=== PATIENT | female | born 1960 | race Caucasian/White ===

== ENCOUNTER 2016-12-03 03:39 | Observation (INO) | payer MEDICAID ==
[~2016-12-03] VITALS: Ht 172.7 cm; Wt 60.2 kg
[2016-12-03] VITALS (8 sets, daily range): BP systolic 103–147; BP diastolic 65–84; PULSE 65–90; RESP 16–18; TEMP 97.8–98.7; O2SAT 95–100
[~2016-12-03 03:39] MED LIST: ALBU1AER INH; ASPI81TA82 PO; CYCL-36 PO; HYDR-3535 PO; HYDR200T42 PO; IMIT100T PO; PRED5TAB PO; PROM25TA5 PO; SYNT137T PO; TOPA100T8 PO; VENL75TA91 PO
[2016-12-03] MEDS ORDERED: SODIUM CHLORIDE 0.9% FLUSH 10 ML FLUSH IVF PRN (03:45)
[2016-12-03 03:59] LABS: AUTOMATED NEUTROPHIL # 2.9 TH/MM3 (1.8-7.7); BASOPHIL % 0.7 % (0.0-2.0); EOSINOPHIL # 0.1 TH/MM3 (0-0.4); EOSINOPHIL % 1.3 % (0.0-4.0); HEMATOCRIT 33.8 % (35.0-46.0); HEMO FLAGS DIFF FINAL; LYMPH % 35.9 % (9.0-44.0); MEAN CELL VOLUME 98.9 FL (80.0-100.0); MEAN CORPUSCULAR HEMOGLOBIN 33.3 PG (27.0-34.0); MEAN CORPUSCULAR HGB CONC 33.7 % (32.0-36.0); MONO % 8.7 % (0.0-8.0); NEUT % 53.4 % (16.0-70.0); PLATELET COUNT 217 TH/MM3 (150-450); RED BLOOD COUNT 3.42 MIL/MM3 (4.00-5.30); RED CELL DISTRIBUTION WIDTH 12.4 % (11.6-17.2); WHITE BLOOD COUNT 5.5 TH/MM3 (4.0-11.0)
[2016-12-03] MEDS ORDERED: TOPA100T11 PO (04:00)
[2016-12-03] MEDS ORDERED: VENTAER INH (04:00)
[2016-12-03] MEDS ORDERED: CYCL1TAB29 PO (04:00)
[2016-12-03] MEDS ORDERED: PLAQ200T PO (04:00)
[2016-12-03] MEDS ORDERED: ASPI81TA11 PO (04:00)
[2016-12-03] MEDS ORDERED: VENL75TA PO (04:00)
[2016-12-03] MEDS ORDERED: LEVO.15 PO (04:00)
[2016-12-03] MEDS ORDERED: HYDR-3535 PO (04:00)
[2016-12-03] MEDS ORDERED: PRED20 PO (04:00)
[2016-12-03] MEDS ORDERED: DULE100A INH (04:00)
[2016-12-03] MEDS ORDERED: IMIT100T PO (04:00)
--- NOTE | 2016-12-03 04:04 | PD ---
HPI Chief Complaint: right wrist/hand weakness Time Seen by Provider: 03:51 Travel History International Travel<30 days: No Contact w/Intl Traveler<30days: No Traveled to known affect area: No History of Present Illness HPI The patient is a 56-year-old right-hand dominant female who woke up tonight with weakness of her right hand. She was last known to have full strength at 1: 00 this morning. 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 She states she always has a headache. She does have systemic lupus erythematosus. She states she has had neck problems and has had a neck fusion. She does have neck pain. She denies any numbness in the right arm, just weakness of her right hand/forearm. She denies any nausea or vomiting. She is not on any anticoagulants/platelet inhibitors except aspirin. PFSH Past Medical History Hx Anticoagulant Therapy: Yes (81 MG ASA) Arthritis: Yes Asthma: No Autoimmune Disease: Yes (LUPUS) Anxiety: No Depression: No (DENIES.) Heart Rhythm Problems: Yes (MURMOR) Cancer: Yes (THYROID CA., 1988.) Cardiovascular Problems: Yes High Cholesterol: No Chemotherapy: No Chest Pain: Yes (TODAY) Congestive Heart Failure: No COPD: No Cerebrovascular Accident: No Diabetes: No Diminished Hearing: No Endocrine: Yes GERD: Yes Genitourinary: Yes (STENTS) Immune Disorder: No Kidney Stones: Yes (FREQUENT) Musculoskeletal: Yes Neurologic: Yes Psychiatric: Yes Reproductive: No Respiratory: Yes (LUNG SURGERY R/T MASS.) Migraines: Yes Radiation Therapy: Yes Seizures: No Sleep Apnea: No Thyroid Disease: Yes (THYROIDECTOMY R/T CA.) Past Surgical History Abdominal Surgery: Yes (COLON RESECTION) Cardiac Surgery: No Endocrine Surgery: Yes (THYROIDECTOMY) Eye Surgery: No Genitourinary Surgery: Yes (BLADDER SURGERY X 3.) Gynecologic Surgery: Yes (CONIZATION FOR CERVICAL CA./HYSTERECTOMY.) Hysterectomy: Yes Oral Surgery: No Thoracic Surgery: Yes (THORACOTOMY) Social History Alcohol Use: Yes (RARELY) Tobacco Use: Yes (COUPLE A DAY) Substance Use: No Allergies-Medications (Allergen,Severity, Reaction): Coded Allergies: erythromycin base (Unverified Allergy, Intermediate, HIVES AND CALVES TO SWELL, 11/25/16) ibuprofen (Unverified Allergy, Mild, PT STATES NOT ALLERGIC, 8/15/17) Reported Meds & Prescriptions Reported Meds & Active Scripts Active Reported Cipro (Ciprofloxacin HCl) 500 Mg Tab 500 Mg PO BID Imitrex (Sumatriptan Succinate) 100 Mg Tab 100 Mg PO BID PRN If a satisfactory response has not been obtained at 2 hours, a second dose may be administered Effexor (Venlafaxine HCl) 75 Mg Tab 75 Mg PO DAILY Topamax (Topiramate) 100 Mg Tab 100 Mg PO BID Synthroid (Levothyroxine Sodium) 150 Mcg Tab 150 Mcg PO DAILY Prednisone 20 Mg Tab 20 Mg PO DAILY Plaquenil (Hydroxychloroquine Sulfate) 200 Mg Tab 100 Mg PO BID Take with food Lortab (Hydrocodone-Acetaminophen) 10-325 Mg Tab 1 Tab PO QID PRN Flexeril (Cyclobenzaprine HCl) 10 Mg Tab 10 Mg PO HS Aspirin EC (Aspirin) 81 Mg Tabdr 81 Mg PO DAILY Dulera 120 Act Inh (Mometasone-Formoterol 120 Act Inh) 100-5 Mcg/Act Inh 2 Puff INH BID Ventolin Hfa 18 GM Inh (Albuterol Sulfate) 90 Mcg/Act Aer 2 Puff INH Q4H PRN Review of Systems Except as stated in HPI: all other systems reviewed are Neg Physical Exam Narrative GENERAL: The patient is alert, oriented 3 in no apparent distress. SKIN: Focused skin assessment warm/dry. HEAD: Atraumatic. Normocephalic. EYES: Pupils equal and round. No scleral icterus. No injection or drainage. ENT: No nasal bleeding or discharge. Mucous membranes pink and moist. NECK: Trachea midline. No JVD. There is diffuse tenderness over the lower aspect of the right cervical spine but no obvious deformity noted. CARDIOVASCULAR: Regular rate and rhythm. No murmur appreciated. RESPIRATORY: No accessory muscle use. Clear to auscultation. Breath sounds equal bilaterally. GASTROINTESTINAL: Abdomen soft, non-tender, nondistended. Hepatic and splenic margins not palpable. MUSCULOSKELETAL: No obvious deformities. No clubbing. No cyanosis. No edema. NEUROLOGICAL: Awake and alert. No obvious cranial nerve deficits. 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 Normal speech. She has good capillary refill of the fingers, radial pulses are normal at the wrist. The right wrist and hand are weak but she has good upper arm strength pink and flex her elbow with normal strength. PSYCHIATRIC: Appropriate mood and affect; insight and judgment normal. Data Data Last Documented VS Vital Signs Date Time Temp Pulse Resp B/P (MAP) Pulse Ox O2 Delivery O2 Flow Rate FiO2 12/03/16 04:35 82 16 139/84 (102) 100 Room Air 12/03/16 03:45 98.0 Orders Orders Electrocardiogram (12/03/16 03:43) Prothrombin Time / Inr (Pt) (12/03/16 03:43) Act Partial Throm Time (Ptt) (12/03/16 03:43) Complete Blood Count With Diff (12/03/16 03:43) Comprehensive Metabolic Panel (12/03/16 03:43) Creatine Kinase (Cpk) (12/03/16 03:43) Troponin I (12/03/16 03:43) Urinalysis - C+S If Indicated (12/03/16 03:43) Ct Brain W/O Iv Contrast(Rout) (12/03/16 03:43) Ecg Monitoring (12/03/16 03:43) Iv Access Insert/Monitor (12/03/16 03:43) Oximetry (12/03/16 03:43) Sodium Chloride 0.9% Flush (Ns Flush) (12/03/16 03:45) Ct Cerv Spine W/O Contrast (12/03/16 03:43) Sumatriptan Inj (Imitrex Inj) (12/03/16 05:30) Mri Brain W/O Contrast (12/03/16 05:19) Labs Laboratory Tests Test 12/03/16 03:50 12/03/16 04:30 White Blood Count 5.5 TH/MM3 Red Blood Count 3.42 MIL/MM3 Hemoglobin 11.4 GM/DL Hematocrit 33.8 % Mean Corpuscular Volume 98.9 FL Mean Corpuscular Hemoglobin 33.3 PG Mean Corpuscular Hemoglobin Concent 33.7 % Red Cell Distribution Width 12.4 % Platelet Count 217 TH/MM3 Mean Platelet Volume 8.2 FL Neutrophils (%) (Auto) 53.4 % Lymphocytes (%) (Auto) 35.9 % Monocytes (%) (Auto) 8.7 % Eosinophils (%) (Auto) 1.3 % Basophils (%) (Auto) 0.7 % Neutrophils # (Auto) 2.9 TH/MM3 Lymphocytes # (Auto) 2.0 TH/MM3 Monocytes # (Auto) 0.5 TH/MM3 Eosinophils # (Auto) 0.1 TH/MM3 Basophils # (Auto) 0.0 TH/MM3 CBC Comment DIFF FINAL Differential Comment Prothrombin Time 10.5 SEC Prothromb Time International Ratio 1.0 RATIO Activated Partial Thromboplast Time 26.0 SEC MDM Medical Decision Making Medical Screen Exam Complete: Yes Emergency Medical Condition: Yes Medical Record Reviewed: Yes Interpretation(s) The EKG shows sinus rhythm with a rate of [address] elevation or depression. Differential Diagnosis Ischemic CVA, brain tumor, intracranial bleed, peripheral nerve compression- unlikely Narrative Course The risks and benefits of IV TPA for thrombolysis were explained to the patient and her . She feels that this is not a major deficit and she does not want TPA. She made the decision on her own and is a firm decision. She understood completely the risks and the benefits. I discussed this with her and her and I discussed this with Dr. Khan. She has made her decision. The patient will be admitted to [facility], neurology consulted and we will be doing an MRI. Physician Communication Physician Communication I discussed the patient with Drs. Khan and MARCO ANTONIO Perales. Mr. Perales instructed me to admit the patient to Dr. Nair. Diagnosis Primary Impression: CVA (cerebral vascular accident) Admitting Information Admitting Physician Requests: Wali Olsen MD Dec 03, 2016 04:04
[2016-12-03 04:13] LABS: PROTHROMBIN TIME - PATIENT 10.5 SEC (9.8-11.6)
[2016-12-03] MEDS ORDERED: CIPR-9 PO (04:27)
--- NOTE | 2016-12-03 04:44 | RADRPT ---
EXAM DATE/TIME: 12/03/2016 04:14 [facility] COMPARISON: No previous studies available for comparison. INDICATIONS : Right hand numbness. Evaluate for cerebrovascular accident. RADIATION DOSE: 56.58 CTDIvol (mGy) MEDICAL HISTORY : None SURGICAL HISTORY : Thyroidectomy. ENCOUNTER: Initial ACUITY: 1 day PAIN SCALE: 2/10 LOCATION: cranial TECHNIQUE: Multiple contiguous axial images were obtained of the head. Using automated exposure control and adj ustment of the mA and/or kV according to patient size, radiation dose was kept as low as reasonably a chievable to obtain optimal diagnostic quality images. DICOM format image data is available electro nically for review and comparison. FINDINGS: CEREBRUM: The ventricles are normal for age. No evidence of midline shift, mass lesion, hemorrhage or acute in farction. No extra-axial fluid collections are seen. POSTERIOR FOSSA: The cerebellum and brainstem are intact. The 4th ventricle is midline. The cerebellopontine angle i s unremarkable. EXTRACRANIAL: The visualized portion of the orbits is intact. SKULL: The calvaria is intact. No evidence of skull fracture. CONCLUSION: 1. No acute intracranial abnormalities on CT examination. Amado Salcedo MD on December 03, 2016 at 4:40 Board Certified Radiologist. This report was verified electronically.
--- NOTE | 2016-12-03 04:49 | RADRPT ---
EXAM DATE/TIME: 12/03/2016 04:14 [facility] COMPARISON: No previous studies available for comparison. INDICATIONS : Right hand numbness. RADIATION DOSE: 24.16 CTDIvol (mGy) MEDICAL HISTORY : None SURGICAL HISTORY : Thyroidectomy. ENCOUNTER: Initial ACUITY: 1 day PAIN SCALE: 2/10 LOCATION: neck TECHNIQUE: Volumetric scanning of the cervical spine was performed. Multiplanar reconstructions in the sagittal, coronal and oblique axial planes were performed. Using automated exposure control and adjustment o f the mA and/or kV according to patient size, radiation dose was kept as low as reasonably achievable to obtain optimal diagnostic quality images. DICOM format image data is available electronically f or review and comparison. FINDINGS: No acute fracture. Minimal degenerative anterolisthesis of C3 on C4. Previous fusion of C6-7. Slight reversal of normal cervical lordosis. No significant central canal stenosis. CONCLUSION: 1. No acute fracture. Minimal degenerative anterolisthesis of C3 on C4. Fusion at C6-7. Amado Salcedo MD on December 03, 2016 at 4:42 Board Certified Radiologist. This report was verified electronically.
[2016-12-03 05:19] LABS: BLOOD, URINE TRACE (NEG); GLUCOSE,URINE NEG (NEG); KETONE, URINE NEG (NEG); NITRITE,URINE NEG (NEG); PH, URINE 5.5 (5.0-8.5)
[2016-12-03 05:20] LABS: ALKALINE PHOSPHATASE 76 U/L (45-117); ALT (GPT) 17 U/L (10-53); ANION GAP 9 MEQ/L (5-15); AST (GOT) 17 U/L (15-37); BICARBONATE 17.3 MEQ/L (21.0-32.0); BLOOD UREA NITROGEN 16 MG/DL (7-18); CHLORIDE 111 MEQ/L (98-107); CREATINE KINASE 206 U/L (26-192); GLOMERULAR FILTRATION RATE 46 ML/MIN (>89); SODIUM (NA) 137 MEQ/L (136-145); TOTAL BILIRUBIN ADULT 0.3 MG/DL (0.2-1.0)
[2016-12-03 05:21] LABS: POTASSIUM 2.8 MEQ/L (3.5-5.1)
[2016-12-03] MEDS ORDERED: POTASSIUM CHLORIDE 10 MEQ CONTROLLED RELEASE TAB PO ONE ×2 (05:30→08:45)
[2016-12-03] MEDS ORDERED: NALOXONE HCL 0.4 MG/ML AMP IV PRN (05:30)
[2016-12-03] MEDS ORDERED: ACETAMINOPHEN 325 MG TAB PO PRN (05:30)
[2016-12-03] MEDS ORDERED: ONDANSETRON HCL 4 MG/2 ML VIAL IVP PRN (05:30)
[2016-12-03] MEDS ORDERED: SODIUM CHLORIDE 0.9% FLUSH 10 ML FLUSH IV FLUSH PRN (05:30)
[2016-12-03] MEDS ORDERED: SUMAtriptan INJ 6 MG/0.5 ML VIAL SQ ONE (05:30)
[2016-12-03] MEDS ORDERED: POTASSIUM CHLORIDE 20 MEQ CONTROLLED RELEASE TAB PO ONE (05:30)
[2016-12-03 05:31] LABS: URINE COLOR YELLOW (YELLW/STRAW)
[2016-12-03 05:32] LABS: COMMENT (UR) CULT NOT INDICATED; CULTURE IF INDICATED CULT NOT INDICATED; RBC, URINE 0-3 /hpf (0-3); SQUAMOUS EPITHELIAL CELL URINE 0-5 /hpf (0-5)
[2016-12-03] MEDS ORDERED: ASPIRIN 325 MG TAB PO ONE (06:00)
[2016-12-03 06:04] LABS: CKMB 8.2 NG/ML (0.5-3.6)
[2016-12-03] MEDS: SODIUM CHLOR 0.9% 1000 ML INJ 1,000 ML IV SCH ×3 (06:23→20:45)
[2016-12-03] MEDS: ENOXAPARIN SODIUM 40 MG/0.4 ML SYRINGE SQ SCH (06:23)
[2016-12-03] MEDS: SODIUM CHLORIDE 0.9% FLUSH 10 ML FLUSH IV FLUSH SCH ×2 (09:00→20:44)
--- NOTE | 2016-12-03 09:26 | RADRPT ---
EXAM DATE/TIME: 12/03/2016 07:36 [facility] COMPARISON: No previous studies available for comparison. INDICATIONS : Cerebrovascular accident. MEDICAL HISTORY : Thyroid cancer. SURGICAL HISTORY : Thyroidectomy. Hysterectomy. Colon resection. Lung surgery. Bladder surgery. Back surgery. ENCOUNTER: Initial ACUITY: 1 day PAIN SCORE: 0/10 LOCATION: Bilateral neck PEAK SYSTOLIC VELOCITIES (cm/sec): ICA/CCA RATIO: Right: 1.5 Left: 1.0 ICA: Right: 111 Left: 97 CCA: Right: 76 Left: 95 ECA: Right: 58 Left: 86 VERTEBRAL: Right: 57 antegrade Left: 51 antegrade Elevated flow velocities and ICA/CCA ratios have been found to correlate with increased degrees of vessel stenosis, calculated as percentage of diameter relative to a normal segment of distal ICA/CCA FINDINGS: RIGHT CAROTID: No significant stenosis is visualized. The waveforms are within normal limits. LEFT CAROTID: No significant stenosis is visualized. The waveforms are within normal limits. VERTEBRAL ARTERIES: Antegrade flow is seen in both vertebral arteries. MISCELLANEOUS: None. CONCLUSION: 1. No stenosis involving either carotid artery. 2. Antegrade flow involving both vertebral arteries. Simón Davies Jr., MD on December 03, 2016 at 9:18 Board Certified Radiologist. This report was verified electronically.
--- NOTE | 2016-12-03 10:27 | ECHRPT ---
Indication: Syncope and collapse CONCLUSIONS Normal left ventricular size and wall thickness. The left ventricular systolic function is normal wi th an estimated ejection fraction in the range of 60-65%. Left ventricular diastolic function parameters a re normal. Trace aortic valve regurgitation. Trace mitral valve regurgitation. There is trace tricuspid valve regurgitation. The estimated pulmonary arterial pressure is 28 mmHg. BP: / HR: 77 Rhythm: MEASUREMENTS (Male / Female) Normal Values Technical Quality: 2D ECHO LV Diastolic Diameter PLAX 4.1 cm 4.2 - 5.9 / 3.9 - 5.3 cm LV Systolic Diameter PLAX 3.0 cm IVS Diastolic Thickness 0.9 cm 0.6 - 1.0 / 0.6 - 0.9 cm LVPW Diastolic Thickness 0.9 cm 0.6 - 1.0 / 0.6 - 0.9 cm LV Relative Wall Thickness 0.4 RV Internal Dim ED PLAX 2.2 cm LVOT Diameter 2.1 cm M-MODE Aortic Root Diameter MM 3.3 cm LA Systolic Diameter MM 2.5 cm LA Ao Ratio MM 0.8 DOPPLER AV Peak Velocity 136.0 cm/s AV Peak Gradient 7.4 mmHg AI Peak Velocity 295.5 cm/s AI Peak Gradient 34.9 mmHg AI Pressure Half Time 873.5 ms LVOT Peak Velocity 116.0 cm/s LVOT Peak Gradient 5.4 mmHg AV Area Cont Eq pk 3.0 cm MR Peak Velocity 326.0 cm/s MR Peak Gradient 42.5 mmHg Mitral E Point Velocity 75.0 cm/s Mitral A Point Velocity 55.8 cm/s Mitral E to A Ratio 1.3 LV E' Lateral Velocity 15.4 cm/s Mitral E to LV E' Lateral Ratio 4.9 LV E' Septal Velocity 9.5 cm/s Mitral E to LV E' Septal Ratio 7.9 TR Peak Velocity 212.0 cm/s TR Peak Gradient 18.0 mmHg PV Peak Velocity 88.2 cm/s PV Peak Gradient 3.1 mmHg FINDINGS LEFT VENTRICLE Normal left ventricular size and wall thickness. The left ventricular systolic function is normal wi th an estimated ejection fraction in the range of 60-65%. Left ventricular diastolic function parameters a re normal. RIGHT VENTRICLE Normal right ventricular size and systolic function. LEFT ATRIUM The left atrial size is normal. RIGHT ATRIUM The right atrial size is normal. ATRIAL SEPTUM Normal atrial septal thickness without atrial level shunting by limited color doppler interrogation. AORTA The aortic root and proximal ascending aorta are normal in size on limited imaging. MITRAL VALVE Trace mitral valve regurgitation. AORTIC VALVE Trace aortic valve regurgitation. TRICUSPID VALVE There is trace tricuspid valve regurgitation. The estimated pulmonary arterial pressure is 28 mmHg. PULMONARY VALVE The pulmonary valve is not well visualized. VESSELS The inferior vena cava is normal in size. PERICARDIUM No pericardial effusion. Bert Byers MD (Electronically Signed) Final Date:03 December 2016 10:26
[2016-12-03] MEDS ORDERED: ACETAMINOPHEN/HYDROcodone 325 MG/10 MG TAB PO PRN (11:45)
[2016-12-03] MEDS ORDERED: ALBUTEROL SULFATE 90 MCG/ACT HFA 8 GM INHALER INH PRN (11:45)
[2016-12-03] MEDS: ASPIRIN 325 MG TAB PO SCH (12:00)
--- NOTE | 2016-12-03 12:13 | MH ---
cc: RANDALL BLACKBURN MD DATE OF ADMISSION: 12/03/2016 CHIEF COMPLAINT Right hand and wrist weakness. HISTORY OF PRESENT ILLNESS This is a 56-year female with past medical/surgical history significant for lupus, history of thyroid cancer in 1987, history of GERD, history of ureteral stent placed four times, history of kidney stone in the past, history of lung surgery for a right lung mass which was benign per patient, migraine headaches, history of thyroidectomy because of the cancer of the thyroid, history of colon resection because of intussusception, conization of the cervix with history of cervical cancer and hysterectomy, who came to the ER at [facility] complaining of right hand weakness. She stated it started at 1:30 a.m. today. She stated that she always has a headache. She has a history of systemic lupus erythematosus. She has neck problems with a history of a neck fusion in the past. She does have some neck pain which is about 4-5/10 and radiates to the right arm. Denies any nausea or vomiting. Denies any fever or chills. Denies any chest pain or shortness of breath. Denies any weakness anywhere else but has some numbness and tingling in the right upper extremity. Other than that nothing significant. PAST MEDICAL/SURGICAL HISTORY As dictated above. SOCIAL HISTORY She smoked for 20 years 2-3 cigarette a day. She drinks rarely. Lives at home with her . She denies any drug abuse. FAMILY HISTORY Significant for cancer. ALLERGIES 1. ERYTHROMYCIN. 2. IBUPROFEN. MEDICATIONS 1. Cipro 500 mg twice a day. 2. Imitrex 100 mg twice a day p.r.n. anxiety. 3. Effexor 75 mg p.o. daily. 4. Topamax 100 mg p.o. b.i.d. 5. Synthroid 150 mcg p.o. daily. 6. Hydroxychloroquine 100 mg twice a day. 7. Lortab 10/325 p.o. q.i.d. p.r.n. pain. 8. Flexeril 10 mg p.o. h.s. 9. Aspirin 81 mg p.o. daily. 10. Dulera 100/5 mcg, two puff inhalation twice a day. 11. Ventolin HFA 18 mcg, two puff inhalation q.4h. REVIEW OF SYSTEMS Positive for right upper extremity weakness and right arm weakness and numbness and tingling in the right upper extremity. All other review of systems are negative. PHYSICAL EXAMINATION GENERAL: This is a 56-year-old female sitting on the bed not in acute distress. VITAL SIGNS: Temperature 97.9, heart rate 67, respirations 18, blood pressure 111/74. O2 saturation 95% on room air. HEENT: Normocephalic, atraumatic. EOMI. PERRL. Oral mucosa moist. NECK: Supple. No visible thyromegaly or neck mass. Trachea is central. CV: Regular rate and rhythm. LUNGS: Respiration is clear to auscultation bilaterally. ABDOMEN: Soft, nontender. Bowel sounds audible. EXTREMITIES: Right upper extremity weakness, probably about 4/5. All other extremities have full range of motion. No cyanosis or clubbing. NEUROLOGIC: Awake, alert, oriented x4. Right upper extremity weakness, 4/5. ? sensory loss right upper extremity. Speech is normal. All cranial nerves are intact. SKIN: Warm and dry. PSYCHIATRIC: Patient is cooperative. Mood and affect are normal. LABORATORY CBC is remarkable for hemoglobin 11.4 low, hematocrit 33.8 low, platelet count 217 normal. CMP is remarkable for potassium 2.8 low, chloride 111 high, carbon dioxide 17.3 low, creatinine 1.20 high, BUN 16, glucose random 111 high, calcium 8.0 low, total creatinine kinase 206 high, CK-MB 8.2 low, troponin-I less than 0.02, total protein 7.5, albumin 4.1. PT 10.5, INR 1.0, APTT 26.0. Urine examination showed trace occult blood. IMAGING Carotid ultrasound done shows no stenosis involving either carotid artery. Antegrade flow involving both vertebral arteries. CT brain was done and shows no acute intracranial abnormality on CT examination. Cervical spine CT done shows no acute fracture. Minimal degenerative sclerosis of the C3-C4, fusion at C6-C7. MRI brain is pending. ASSESSMENT AND PLAN 1. This is a 56-year-old female who came to the ER diagnosed with right upper extremity weakness and numbness and tingling, rule out stroke. CT brain does not show anything acute. MRI is pending. Neuro-checks every six hours. Neurology consulted. The patient is on aspirin 325 mg p.o. daily. Further recommendation per neurology. 2. History of hypothyroidism. Continue home medication. 3. History of migraine headaches. Continue home medication. 4. History of lupus. Continue home medication. 5. History of arthritis. Continue home medication. 6. History of COPD. Continue home medication. 7. History of kidney stone, status post stent placement and removal in the past. 8. History of lung mass, status post mass removal, it was benign per patient. 9. History of thyroid cancer. The patient is status post total thyroidectomy. 10. History of colon resection because of intussusception. 11. History of cervical cancer status post total hysterectomy. 12. DVT prophylaxis with Lovenox 40 mg subcutaneous daily. 13. GI prophylaxis with Protonix 40 mg p.o. daily. 14. We are going to manage the patient on a daily basis and make recommendations on a daily basis. Randall Blackburn MD EA/DANIEL /11:36 AM /11:49 AM
[2016-12-03] MEDS ORDERED: PILL SPLITTER OTHER PRN (12:15)
[2016-12-03] MEDS ORDERED: FORMOTEROL PO SCH ×2 (12:15→21:00)
[2016-12-03] MEDS ORDERED: MOMETASONE PO SCH ×2 (12:15→21:00)
[2016-12-03] MEDS ORDERED: [UNRECOGNIZED DRUG - OTHER] PO SCH ×2 (12:15→21:00)
--- NOTE | 2016-12-03 12:20 | RADRPT ---
EXAM DATE/TIME: 12/03/2016 10:41 [facility] COMPARISON: No previous studies available for comparison. INDICATIONS : CVA. Tinglng right arm. MEDICAL HISTORY : Carcinoma, thyroid. SURGICAL HISTORY : Thyroidectomy. Colon resection. Fusion, cervical. ENCOUNTER: Initial ACUITY: 1 day PAIN SCORE: 0/10 LOCATION: head TECHNIQUE: Multiplanar, multisequence MRI of the brain was performed without contrast. FINDINGS: CEREBRUM: The ventricles are normal for age. No evidence of midline shift, mass lesion, hemorrhage or acute in farction. No extraaxial fluid collections are seen. The pituitary gland and suprasellar cistern are normal in configuration. WHITE MATTER: Minimal white matter changes, predominantly right cerebral hemisphere. POSTERIOR FOSSA: The cerebellum and brainstem are intact. The 4th ventricle is midline. The cerebellopontine angle is unremarkable. 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 DIFFUSION IMAGING: No focal areas of restricted diffusion are seen. No evidence of acute infarction. EXTRACRANIAL: The visualized portions of the orbits and paranasal sinuses are unremarkable. CONCLUSION: 1. 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 2. Minimal white matter changes. 3. Otherwise, nothing acute.. Onel Plaza MD on December 03, 2016 at 12:13 Board Certified Radiologist. This report was verified electronically.
[2016-12-03] MEDS: VENLAFAXINE HCL XR 75 MG CAP PO SCH (12:21)
[2016-12-03] MEDS: predniSONE 20 MG TAB PO SCH (12:21)
[2016-12-03] MEDS: TOPIRAMATE 100 MG TAB PO SCH ×2 (12:21→20:44)
[2016-12-03] MEDS: HYDROXYCHLOROQUINE SULFATE 200 MG TAB PO SCH ×2 (12:22→20:43)
[2016-12-03] MEDS: CIPROFLOXACIN 500 MG TAB PO SCH ×2 (12:22→20:43)
[2016-12-03] MEDS: LEVOTHYROXINE SODIUM 150 MCG TAB PO SCH (12:22)
[2016-12-03] MEDS: SUMAtriptan SUCCINATE 50 MG TAB PO PRN (15:44)
--- NOTE | 2016-12-03 19:38 | EKG ---
Date Performed: 12/03/2016 Time Performed: 04:02:59 PTAGE: 56 years EKG: Sinus rhythm NONSPECIFIC T-WAVE ABNORMALITY BORDERLINE ECG PREVIOUS TRACING : 06/26/2015 20.26 Compared to prior tracing no significant change DOCTOR: Dave Mireles Interpretating Date/Time 12/03/2016 19:36:47
[2016-12-03] MEDS ORDERED: CYCLOBENZAPRINE HCL 10 MG TAB PO SCH (21:00)
[2016-12-04] VITALS: BP 96/76; PULSE 65; RESP 16; TEMP 97.6; O2SAT 99
[2016-12-04] MEDS: SUMAtriptan SUCCINATE 50 MG TAB PO PRN (04:12)
[2016-12-04] MEDS: ENOXAPARIN SODIUM 40 MG/0.4 ML SYRINGE SQ SCH (05:30)
[2016-12-04] MEDS: LEVOTHYROXINE SODIUM 150 MCG TAB PO SCH (06:00)
[2016-12-04 06:39] LABS: AUTOMATED NEUTROPHIL # 1.9 TH/MM3 (1.8-7.7); BASOPHIL % 1.1 % (0.0-2.0); EOSINOPHIL % 1.2 % (0.0-4.0); HEMATOCRIT 33.1 % (35.0-46.0); HEMO FLAGS DIFF FINAL; LYMPH % 40.7 % (9.0-44.0); LYMPHOCYTE # 1.5 TH/MM3 (1.0-4.8); MEAN CELL VOLUME 98.4 FL (80.0-100.0); MEAN CORPUSCULAR HEMOGLOBIN 31.6 PG (27.0-34.0); MEAN CORPUSCULAR HGB CONC 32.1 % (32.0-36.0); MONO % 8.3 % (0.0-8.0); NEUT % 48.7 % (16.0-70.0); PLATELET COUNT 178 TH/MM3 (150-450); RED BLOOD COUNT 3.37 MIL/MM3 (4.00-5.30); RED CELL DISTRIBUTION WIDTH 12.3 % (11.6-17.2); WHITE BLOOD COUNT 3.7 TH/MM3 (4.0-11.0)
[2016-12-04 07:06] LABS: ALKALINE PHOSPHATASE 64 U/L (45-117); ALT (GPT) 15 U/L (10-53); ANION GAP 7 MEQ/L (5-15); AST (GOT) 23 U/L (15-37); BICARBONATE 17.8 MEQ/L (21.0-32.0); BLOOD UREA NITROGEN 9 MG/DL (7-18); CHLORIDE 121 MEQ/L (98-107); GLOMERULAR FILTRATION RATE 65 ML/MIN (>89); POTASSIUM 3.6 MEQ/L (3.5-5.1); SODIUM (NA) 146 MEQ/L (136-145); TOTAL BILIRUBIN ADULT 0.3 MG/DL (0.2-1.0)
[2016-12-04 08:00] VITALS: BP 104/71; PULSE 74; RESP 16; TEMP 97.9; O2SAT 99
[2016-12-04 08:22] VITALS: O2SAT 99
--- NOTE | 2016-12-04 08:28 | HHI.PR ---
Subjective History of Present Illness Patient have right hand and wrist weakness which is better neurology input noted d/w ELBA Hickman at bed side ok to discharge per neurology.. Neurology recommend outpatient EMG nerve conduction study . In the interim she can stay on full dose aspirin. recommend physical and occupational therapy. Outpatient Holter monitor as well. No evidence of a stroke on MRI. Review of Systems Constitutional Constitutional: Fatigue, Weakness Musculoskeletal MS Remarks right hand and wrist weakness Neurologic Neurologic Remarks right hand and wrist weakness Vitals/Results Vital Signs Vital Signs Date Time Temp Pulse Resp B/P (MAP) Pulse Ox O2 Delivery O2 Flow Rate FiO2 12/04/16 00:00 97.6 65 16 96/76 (83) 99 12/03/16 20:47 98 21 12/03/16 20:00 98.7 65 16 103/65 (78) 99 12/03/16 12:00 97.8 77 18 112/79 (90) 100 12/03/16 12:00 97.8 74 18 147/71 (96) 96 12/03/16 08:30 97.9 67 18 111/74 (86) 95 CBC/BMP: 12/04/16 0555 12/04/16 0555 Lab Results Laboratory Tests Test 12/04/16 05:55 White Blood Count 3.7 TH/MM3 Red Blood Count 3.37 MIL/MM3 Hemoglobin 10.6 GM/DL Hematocrit 33.1 % Mean Corpuscular Volume 98.4 FL Mean Corpuscular Hemoglobin 31.6 PG Mean Corpuscular Hemoglobin Concent 32.1 % Red Cell Distribution Width 12.3 % Platelet Count 178 TH/MM3 Mean Platelet Volume 9.0 FL Neutrophils (%) (Auto) 48.7 % Lymphocytes (%) (Auto) 40.7 % Monocytes (%) (Auto) 8.3 % Eosinophils (%) (Auto) 1.2 % Basophils (%) (Auto) 1.1 % Neutrophils # (Auto) 1.9 TH/MM3 Lymphocytes # (Auto) 1.5 TH/MM3 Monocytes # (Auto) 0.3 TH/MM3 Eosinophils # (Auto) 0.0 TH/MM3 Basophils # (Auto) 0.0 TH/MM3 CBC Comment DIFF FINAL Differential Comment Blood Urea Nitrogen 9 MG/DL Creatinine 0.89 MG/DL Random Glucose 90 MG/DL Total Protein 6.3 GM/DL Albumin 3.2 GM/DL Calcium Level 7.6 MG/DL Alkaline Phosphatase 64 U/L Aspartate Amino Transf (AST/SGOT) 23 U/L Alanine Aminotransferase (ALT/SGPT) 15 U/L Total Bilirubin 0.3 MG/DL Sodium Level 146 MEQ/L Potassium Level 3.6 MEQ/L Chloride Level 121 MEQ/L Carbon Dioxide Level 17.8 MEQ/L Anion Gap 7 MEQ/L Estimat Glomerular Filtration Rate 65 ML/MIN Physical Exam General General Appearance: No Acute Distress, Comfortable Eyes Eye Exam: Sclera White, Extraocular Movement Intact Throat Throat Exam: Oral Mucosa [place] & Moist, Oral Pharynx Normal Neck Neck Exam: Neck Supple, Trachea Midline Pulmonary Resp Exam: Clear Bilaterally, Breath Sounds Equal, No Distress Cardiology CV Exam: Regular, Normal Sinus Rhythm Gastrointestinal/Abdomen GI Exam: Soft, Non-Tender, Bowel Sounds Present Musculoskeletal MS Exam: Joints Intact MS Remarks right hand and wrist weakness Integumentary Skin Exam: Clear, Warm, Dry Extremeties Extremities Exam: No Edema Neurologic Neuro Exam: Alert, Awake, Oriented, Speech Clear Neuro Remarks right hand and wrist weakness Psychiatric Psych Exam: Appropriate Responses VTE Prophylaxis VTE Prophylaxis Meds: Heparin PUD Prophylasis PUD Prophylaxis: Protonix Assessment/Plan Assessment/Plan ASSESSMENT AND PLAN 1. This is a 56-year-old female who came to the ER diagnosed with right upper extremity weakness and numbness and tingling, rule out stroke. CT brain does not show anything acute. MRI is pending. Neuro-checks every six hours. Neurology input noted. need EMG and Nerve conduction study as out patient Need physical and occupational therapy and MRI Negative for stroke. The patient is on aspirin 325 mg p.o. daily. 2. History of hypothyroidism. Continue home medication. 3. History of migraine headaches. Continue home medication. 4. History of lupus. Continue home medication. 5. History of arthritis. Continue home medication. 6. History of COPD. Continue home medication. 7. History of kidney stone, status post stent placement and removal in the past. 8. History of lung mass, status post mass removal, it was benign per patient. 9. History of thyroid cancer. The patient is status post total thyroidectomy. 10. History of colon resection because of intussusception. 11. History of cervical cancer status post total hysterectomy. 12. DVT prophylaxis with Lovenox 40 mg subcutaneous daily. 13. GI prophylaxis with Protonix 40 mg p.o. daily. Ok to discharge home today. f/u with PCP/ Neurology 1 week. condition at discharge good, Activity as tolerated. Diet Cardiac Medicine see discharge medicine list. Discussed Condition with: Patient Randall Nair MD Dec 04, 2016 08:28
--- NOTE | 2016-12-04 08:29 | MB ---
cc: BLANCHE ARGUETA M.D. DATE OF CONSULTATION 12/03/2016 DATE OF 1960 AGE [age] years old. REASON FOR CONSULTATION Right hand weakness. Possible TIA. HISTORY OF PRESENT ILLNESS This is a 56-year-old woman with a history of thyroid cancer in 1987, reflux, ureteral stent, kidney stones, lung surgery for a right lung mass benign per the patient, migraine headaches, thyroidectomy, colon resection due to intussusception who comes in with right hand weakness. She stated it started at 01:30 in the morning. She woke up with it. She has a history also of lupus. She denies any significant neck issues but she has had a history of neck fusion in the past. She denies any interval changes in the face or in the leg on the same side. SOCIAL HISTORY History of smoking for 20 years, two to three cigarettes a day. Drinks rarely. Lives at home. Denies any drug abuse. FAMILY HISTORY Cancer. ALLERGIES ERYTHROMYCIN. IBUPROFEN. CURRENT MEDICATIONS 1. Cipro. 2. Imitrex. 3. Effexor. 4. Topamax. 5. Synthroid. 6. Hydroxychloroquine. 7. Lortab. 8. Flexeril. 9. Baby aspirin. 10. Dulera. 11. Ventolin. PHYSICAL EXAMINATION VITAL SIGNS: Temperature is 97.8, pulse 74, respiratory rate 18, blood pressure 147/71, sating at 96% on room air, 100% room air. NECK: Supple. No bruits. HEART: Regular. NEUROLOGICAL EXAMINATION She is awake, alert. She is fluent. Pupils reactive. Visual lopez full. Face symmetrical. Tongue midline. Motor: She seems to have a right wrist drop. She cannot extend the fingers. She states that sensory is abnormal, feels like pins and needles. DTRs are 2+. No Nevin's sign. Leg lag is not observed. She does not have a drift. [employer] is very weak. Imaging of the brain did not show any acute infarct, just some tonsillar ectopia with cerebellar tonsils at 5 mm below the foramen magnum, nothing acute. IMAGING STUDIES Her carotid ultrasound was negative. LABS Reviewed. She has a low potassium of 2.8 when she came in. IMPRESSION Right hand weakness. It looks like a radial nerve palsy most likely. She cannot tell me the position at which she slept, if she put any pressure in the axillary region. RECOMMENDATIONS 1. I would recommend outpatient EMG nerve conduction study. 2. I see that she is on topiramate; I am not sure why she is on that, if she has a history of kidney stones she should not be on that drug. 3. In the interim she can stay on full dose aspirin. 4. Would recommend physical and occupational therapy. 5. Outpatient Holter monitor as well. However, I do not see any evidence of a stroke on her imaging. 6. I would recommend to see the outpatient EMG nerve conduction study. 7. Follow up with me in the office for that and further recommendations outpatient-reyes will be made. 8. If she already has a neurologist, she can have the nerve conduction with that person. 9. Discharge planning likely in 24 hours. MD DENNIS Pereira/ZAINAB /6:46 PM /8:11 AM
[2016-12-04 08:30] VITALS: BP 128/67; PULSE 73; RESP 16; TEMP 97.9; O2SAT 97
[2016-12-04] MEDS: VENLAFAXINE HCL XR 75 MG CAP PO SCH (08:59)
[2016-12-04] MEDS: CIPROFLOXACIN 500 MG TAB PO SCH (08:59)
[2016-12-04] MEDS: TOPIRAMATE 100 MG TAB PO SCH (08:59)
[2016-12-04] MEDS: ASPIRIN 325 MG TAB PO SCH (08:59)
[2016-12-04] MEDS: predniSONE 20 MG TAB PO SCH (08:59)
[2016-12-04] MEDS: SODIUM CHLORIDE 0.9% FLUSH 10 ML FLUSH IV FLUSH SCH (09:00)
[2016-12-04] MEDS: HYDROXYCHLOROQUINE SULFATE 200 MG TAB PO SCH (09:00)
[2016-12-04 12:00] VITALS: BP 97/68; PULSE 77; RESP 16; TEMP 97.4; O2SAT 99
[2016-12-04] MEDS ORDERED: ASPI325T PO (13:09)
== END 2016-12-04 15:24 | disposition home or self-care (01) ==
LOC: PHED 03:39 → INTOOBSV 05:31 → PHEDA 05:31 → PH3A 07:57
PROVIDERS: ADMIT Family Medicine; ATTEND Family Medicine
DX: R53.1 Weakness (principal); R20.0 Anesthesia of skin; E89.0 Postprocedural hypothyroidism; M32.9 Systemic lupus erythematosus, unspecified; G43.909 Migraine, unspecified, not intractable, without status migrainosus; J44.9 Chronic obstructive pulmonary disease, unspecified; K21.9 Gastro-esophageal reflux disease without esophagitis; Z85.850 Personal history of malignant neoplasm of thyroid; Z85.41 Personal history of malignant neoplasm of cervix uteri; Z87.891 Personal history of nicotine dependence; Z90.49 Acquired absence of other specified parts of digestive tract; Z79.82 Long term (current) use of aspirin; Z90.710 Acquired absence of both cervix and uterus
CPT/HCPCS: 70450; 70551; 72125; 80053; 81001; 82550; 82552; 84484; 85025; 85610; 85730; 93005; 93306; 93880; 96360; 96361; 96372; 99285; G0378; J1650; J3030; J7030; J7512